=== PATIENT | female | born 1945 | race Caucasian/White ===

== ENCOUNTER 2018-03-24 11:23 | Day surgery (SDC) | payer OTHER ==
[~2018-03-24] VITALS: Ht 162.6 cm; Wt 69.4 kg
[~2018-03-24 11:23] MED LIST: CALCIUM500 M4 PO; ESSENTIAL WOMA1 EAC1 PO; LO-DOSE ASPIRIN81 M2 PO; VITAMIN C500 M6 PO; VITAMIN D400 UNIT PO; ZOCOR40 MG PO
[2018-03-24 12:37] VITALS: BP 131/62
[2018-03-24 13:16] LABS: HEMATOCRIT 43.7 % (36.0-46.0); HEMOGLOBIN 14.5 G/DL (11.9-15.5); MCH 29.3 PG (29.0-34.0); MCHC 33.2 G/DL (30.0-36.0); MCV 88.3 FL (83-99); PLATELET COUNT 259 K/uL (156-360); RBC DIS.WIDTH-CV 12.9 % (11.8-14.6); RBC DIS.WIDTH-SD 41.8 % (39-53); RED BLOOD COUNT 4.95 M/uL (3.80-5.20); WHITE BLOOD COUNT 5.1 K/uL (4.1-10.2)
[2018-03-24 13:40] LABS: CHLORIDE 108 MEQ/L (99-109); CREATININE 0.8 MG/DL (0.6-1.3); GFR ESTIMATE (CALCULATED) > 59 mL/min/; GLUCOSE 105 mg/dL (70-99); POTASSIUM 4.3 MEQ/L (3.7-5.4); SODIUM 141 MEQ/L (136-147); UREA NITROGEN (BUN) 21 mg/dL (9-23)
[2018-03-24] MEDS ORDERED: NORCO 5/3251 TABLET PO (17:14)
[2018-03-24 18:20] VITALS: BP 121/63
[2018-03-24 19:20] VITALS: BP 126/60
== END 2018-03-24 19:55 | disposition home or self-care (01) ==
LOC: SDC 11:23
PROVIDERS: Surgery
DX: K36 Other appendicitis (principal); K38.1 Appendicular concretions; K42.9 Umbilical hernia without obstruction or gangrene; K66.0 Peritoneal adhesions (postprocedural) (postinfection); E78.4 Other hyperlipidemia; G47.30 Sleep apnea, unspecified; I34.1 Nonrheumatic mitral (valve) prolapse; E66.3 Overweight; Z68.27 Body mass index [BMI] 27.0-27.9, adult; Z85.3 Personal history of malignant neoplasm of breast; Z79.82 Long term (current) use of aspirin
CPT/HCPCS: 80048; 81003; 85027; 88305; J0690; J1100; J1170; J2405; J2710; J3010; J7643; S0020; S0074